=== PATIENT | male | born 1950 | race Caucasian/White ===

== ENCOUNTER 2020-07-14 16:26 | Emergency (ER) | payer MEDICARE, SELFPAY ==
[2020-07-14 16:40] VITALS: BP 132/91; PULSE 69; RESP 18; TEMP 36.4; O2SAT 99
--- NOTE | 2020-07-14 16:45 | PC.NURSE ---
patient brought back to ED room 16 with c/o scrotal abrasion. see initial assessment. resting on stretcher. provider to room but patient needs to change in to gown.
[2020-07-14] MEDS: SILVER NITRATE (*SP) STICK 1 EACH (17:10)
--- NOTE | 2020-07-14 17:11 | PC.NURSE ---
provider done with procedure
--- NOTE | 2020-07-14 17:29 | ED.MALEGU ---
HPI - Male Genitourinary General Chief complaint: Urogenital-Male Stated complaint: scrotal abrasion Time Seen by Provider: 07/14/20 16:46 Source: patient Mode of arrival: ambulatory Limitations: no limitations History of Present Illness HPI Narrative: Patient is 70 years old white male presents with bleeding at the right side of the scrotum started 10 AM. Currently patient on aspirin 325 mg once a day. History of hypertension and hyperlipidemia. Patient denies any trauma or similar symptoms. Related Data Allergies Allergy/AdvReac Type Severity Reaction Status Date / Time No Known Allergies Allergy Verified 07/14/20 16:42 Review of Systems Review of Systems: Narrative: CONSTITUTIONAL: Denies fever, chills, or sweats. EYES: Denies visual changes, redness, or discharge. ENT: Denies rhinorrhea, congestion, sore throat, or otalgia. CARDIOVASCULAR: Denies chest pain, palpitations, or edema. RESPIRATORY: Denies cough or dyspnea. GASTROINTESTINAL: Denies abdominal pain, nausea, vomiting, or diarrhea. GENITOURINARY: Denies dysuria or hematuria. SKIN: Denies rash or itching. MUSCULOSKELETAL: Denies back pain, joint pain, or myalgia. NEUROLOGIC: Denies headache, numbness, or weakness. PSYCHIATRIC: Denies anxiety or depression. Exam Narrative: Exam Narrative: General appearance: Well-developed, well-nourished Skin: Normal color Chest and respiratory: Airway patent, no respiratory distress, no accessory muscle use Heart: Regular rate/rhythm Vascular: Normal peripheral pulses, normal capillary refill. Neurologic: Alert and oriented ?3, : Male General Exam: Yes normal external exam Penis: Yes normal penis Scrotum: other (Fine varicose vein squirting blood on the right side of the scrotum) Male genitals images: 1. Bleeding varicose vein Course Course Emergency Course: Improved Vital Signs Vital signs: Vital Signs Temperature 36.4 C 07/14/20 16:40 Pulse Rate 69 07/14/20 16:40 Respiratory Rate 18 07/14/20 16:40 Blood Pressure 132/91 H 07/14/20 16:40 Pulse Oximetry 99 07/14/20 16:40 Temperature 36.4 C 07/14/20 16:40 Pulse Rate 69 07/14/20 16:40 Respiratory Rate 18 07/14/20 16:40 Blood Pressure 132/91 H 07/14/20 16:40 Pulse Oximetry 99 07/14/20 16:40 Procedures Other Procedure Procedure 1: Other Procedure: Silver nitrate cauterization of the bleeding vein on the right scrotum. Patient tolerated the procedure well. Patient was observed for 30 minutes prior to discharge, no active bleeding. MDM - Male Genitourinary MDM Narrative Medical decision making narrative: Varicose vein bleeding of the scrotum Critical Care Time Critical Care Time Critical Care Time: No Discharge Plan Discharge Clinical Impression: Varicose vein of scrotum Patient Disposition: Home, Self-Care Condition: Improved Instructions: Abrasion (ED) Additional Instructions: Return if symptoms are worsening , call your family physician for appointment, take Tylenol as as needed for aches and pain, continue home medications. Follow-up/Referrals: TOMAS ROWLEY [Other]
== END 2020-07-14 17:47 | disposition home or self-care (01) ==
PROVIDERS: Emergency Provider Emergency Medicine
DX: I86.1 Scrotal varices (principal)
CPT/HCPCS: 12001; 99283

== ENCOUNTER 2020-09-04 16:50 | Emergency (ER) | payer MEDICARE, SELFPAY ==
[2020-09-04 16:57] VITALS: BP 141/83; PULSE 66; RESP 18; TEMP 36.6; O2SAT 99
--- NOTE | 2020-09-04 17:11 | ED.GENADULT ---
HPI - General Adult General Chief complaint: Unspecified Stated complaint: Vein Bleeding Time Seen by Provider: 09/04/20 17:04 History of Present Illness HPI narrative: Patient is a 70-year-old male who presents ER with bleeding from his scrotum. Had this occur in the last month and a half and had a small varicose vein that was bleeding. It stopped with silver nitrate cautery. Today it seems to stop just with pressure and time. Denies trauma or any heavy lifting. Reports he just bent down to tie his shoe and his pants became wet. Related Data Allergies Allergy/AdvReac Type Severity Reaction Status Date / Time No Known Allergies Allergy Verified 07/14/20 16:42 Review of Systems Integumentary/Breasts: Skin/Breast: Denies erythema, Denies rash and Denies skin ulcer Comments: Bleeding from the scrotum. [facility] Past Medical History Medical History (Updated 09/04/20 @ 17:50 by Maikol Zee MD) Healthy adult male Surgical History Surgical History (Updated 09/04/20 @ 17:47 by Maikol Zee MD) No pertinent past surgical history Exam Narrative: Exam Narrative: GENERAL: Well-appearing, well-nourished, and in no acute distress. HEAD: Normocephalic, atraumatic. : Normal external genitalia. Small spot right scrotum where pt was bleeding on top of a varicose vein. EXTREMITIES: Normal range of motion. No edema. SKIN: Warm, dry, no rash. NEURO: Alert and oriented x3. PSYCH: Normal mood and affect. Course Course Emergency Course: No longer bleeding. Recommended barrier ointment and a jockstrap vent irritation and bleeding. Recommend follow-up with the vein center. Vital Signs Vital signs: Vital Signs Temperature 97.8 F 09/04/20 16:57 Pulse Rate 66 09/04/20 16:57 Respiratory Rate 18 09/04/20 16:57 Blood Pressure 141/83 H 09/04/20 16:57 Pulse Oximetry 99 09/04/20 16:57 Temperature 97.8 F 09/04/20 16:57 Pulse Rate 66 09/04/20 16:57 Respiratory Rate 18 09/04/20 16:57 Blood Pressure 141/83 H 09/04/20 16:57 Pulse Oximetry 99 09/04/20 16:57 Medical Decision Making Vital Signs Vital Signs: Vital Signs Temperature 97.8 F 09/04/20 16:57 Pulse Rate 66 09/04/20 16:57 Respiratory Rate 18 09/04/20 16:57 Blood Pressure 141/83 H 09/04/20 16:57 Pulse Oximetry 99 09/04/20 16:57 Temperature 97.8 F 09/04/20 16:57 Pulse Rate 66 09/04/20 16:57 Respiratory Rate 18 09/04/20 16:57 Blood Pressure 141/83 H 09/04/20 16:57 Pulse Oximetry 99 09/04/20 16:57 Discharge Plan Discharge Clinical Impression: Scrotal varicose veins Patient Disposition: Home, Self-Care Condition: Stable Additional Instructions: You have a bleeding varicose vein. You should contact your vein stripping center in the area to have this remedied. Return to the ER if you have increased bleeding, you develop redness of the skin of your scrotum, or you have testicular pain. Follow-up/Referrals: UNKNOWN,DOCTOR [Primary Care Provider] - 1 Week
== END 2020-09-04 18:12 | disposition home or self-care (01) ==
PROVIDERS: Emergency Provider Emergency Medicine
DX: I86.1 Scrotal varices (principal)
CPT/HCPCS: 99281